=== PATIENT | male | born 1980 | race Caucasian/White ===

== ENCOUNTER 2017-03-20 11:34 | Emergency (ER) | payer MEDICAID ==
--- NOTE | 2017-03-20 11:48 | ED Physician Chart ---
ED Chief Complaint/HPI - Patient Information Date Seen:: 03/20/17 Time Seen:: 11:38 Chief Complaint:: R lateral chest wall for 3 days. History of Present Illness:: Brought in by private auto for the above reason. Pt is primarily Ivorian speaking. Interpretation is provided by his sister Danitza per patient's request. Pt was accidentally impacted on his right chest with a cart that he was pushing when it got stuck suddenly. No dyspnea. Chest pain can be precipitated and aggravated with deep inspiration. Pain can be improved by minimizing chest wall movement. No fever or cough. No lightheadedness. Pt has not taken any analgesic since his injury. Allergies:: Allergies Allergy/AdvReac Type Severity Reaction Status Date / Time No Known Allergies Allergy Verified 03/20/17 11:39 Vitals:: see Nurse Note. Historian:: Patient Family MD/PCP:: unknown LMP:: N/A Review:: Nurse's Note Reviewed ED Review of Systems - Review of Systems General/Constitutional: No fever, No weight loss, No weakness, No loss of appetite Skin: No rash, No bruising Head: No headache, No light-headedness Eyes: No loss of vision, No pain ENT: No nasal drainage, No sore throat Neck: No neck pain, No stiffness Cardio Vascular: Chest pain (chest pain is c/w musculoskeletal in origin.), No palpitations, No edema Pulmonary: No SOB, No cough, No wheezing GI: No nausea, No vomiting, No pain Musculoskeletal: Other (R sided chest wall pain.) Endocrine: No polyuria, No polydipsia Psychiatric: No prior psych history Hematopoietic: No bruising, No lymphadenopathy Allergic/Immuno: No urticaria, No angioedema Neurological: No syncope, No focal symptoms, No weakness, No paresthesia, No headache, No dizziness, No confusion ED Past Medical History - Past Medical History Past Medical History: No significant medical hx Family History: None Social History: Non Smoker, No Alcohol, No Drug Use, Single, Employed Employment:: mechanical repair worker. Surgical History: None Psychiatricy History: None Medication: None Family Medical History - Family Member Mother History Unknown: Yes ED Physical Exam - Physical Examination General/Constitutional: Awake, Well-developed, well-nourished, Alert, No distress, GCS 15, Non-toxic appearing, Ambulatory Other Gen/Cons comments:: Breathes comfortably, speaks clearly, interacts normally, and ambulates without difficulty. Head: Atraumatic Eyes: Lids, conjuctiva normal, PERRL, EOMI Skin: No ecchymosis, Well hydrated, No lymphadenopathy ENMT: External ears, nose nl, Lips, teeth, gums nl, Oropharynx nl Neck: Nontender, Full ROM w/o pain, No nuchal rigidity, No mass, No stridor Respiratory: Nl effort/Exclusion, Clear to Auscultation, No Wheeze/Rhonchi/Rales Other Respiratory comments:: Chest wall exam: Reproducible tendernss at right lower lateral chest wall with palpation. No gross deformity, erythema, swelling, ecchymosis, crepitus or open wound. Cardio Vascular: RRR, No murmur, gallop, rubs GI: No tenderness/rebounding/guarding, No organomegaly, No hernia, Nondistended Other GI comments:: Abdomen is soft. Extremities: No tenderness or effusion, No edema Neuro/Psych: Alert/oriented (oriented x 3), Judgement/insight normal, Mood normal, Normal gait, No focal deficits ED Labs/Radiology/EKG Results - Radiology Results Results: R rib series X-ray: Based on my interpretation, possible R 9th rib nondisplaced fracture. Official report is pending. ED Septic Shock - . Is Septic Shock (SBP<90, OR Lactate>4 mmol\L) present?: No ED Reassessment (Disposition) - Reassessment Reassessment:: 1310 Pt feels much better. R rib series X-ray just became available. Radiological findings have been reviewed with pt. Pt requests to go home now. Aftercare instructions have been given. Interpretation is provided by his sister Danitza. Reassessment Condition:: Improved - Diagnosis Diagnosis:: R chest wall contusion with possible nondisplaced right 9th rib fracture. Stable. - Aftercare/Follow up Instructions Aftercare/Follow-Up Instructions:: Refer to Discharge Instructions Notes:: May take Motrin 200 mg tab 3-4 tabs po q8h prn pain. Avoid heavy lifting or activities that increase chest wall motion until further physician direction. F/U with Dr. Menendez or PCP pf pt's choice in 2-3 days for recheck. Return to ER immediately if condition worsens or if any further questions/problems. Medication Prescribed:: None - Patient Disposition Discharge/Transfer:: Home Time:: 13:20 Condition at Disposition:: Stable, Improved
--- NOTE | 2017-03-21 08:30 | Diagnostic Imaging Report ---
Right rib than Series 3 views Indication: Right sided chest pain Comparison: none Findings: There is slight irregularity seen along the distal aspect of the right ninth rib. No evidence of pneumothorax. No pleural effusions. No evidence of focal consolidation. Impression: Slight irregularity involving the distal aspect of the right ninth rib. Findings is nonspecific and may be projectional, however, nondisplaced fracture cannot be completely excluded. Please correlate with clinical findings and point tenderness in this region. No focal consolidation or evidence of pneumothorax. In the setting of trauma, if clinical symptoms persist and there is continued concern for an occult fracture, follow up exams in 5-7 days is suggested.
== END 2017-03-20 13:25 | disposition home or self-care (01) ==
LOC: ER 11:34
DX: S20.211A Contusion of right front wall of thorax, initial encounter (principal); X58.XXXA Exposure to other specified factors, initial encounter; Y93.89 Activity, other specified; Y92.89 Other specified places as the place of occurrence of the external cause; Y99.8 Other external cause status
CPT/HCPCS: 71101-TC-RT; Z7502